=== PATIENT | female | born 1970 | race Caucasian/White ===

== ENCOUNTER 2016-09-18 14:11 | Emergency (ER) | payer OTHER | END 2016-09-18 14:30 | disposition home or self-care (01) | LOC: CED 14:11 | DX: R51 Headache (principal); F41.9 Anxiety disorder, unspecified; Z88.0 Allergy status to penicillin; Z88.2 Allergy status to sulfonamides; Z90.49 Acquired absence of other specified parts of digestive tract | CPT/HCPCS: 99283 ==

== ENCOUNTER → 2017-01-02 | Outpatient (CLI) | payer OTHER ==
--- NOTE | ~2017-01-02 | US136 ---
[facility] A Service of [facility] RADIOLOGY TEXT RESULTS PATIENT: DIANA HULL LOCATION: CNIV : 66 UNIT #: [id number] AGE: [address]: Cindi Calvert MD SEX: F ORDER DR: [id number] [address] [id number] O MR#: [id number] Acc #: [id number] NAME: DIANA HULL : 1970 SEX: F STUDY DATE/TIME: 01/02/2017 10:21 UNIT: CNIV ROOM: STUDY DESCRIPTION: US U/L Ext Art Study [facility] Bil Attending Physician: Cindi Calvert M.D. Referring Physician: Cindi Calvert M.D. Ordering Physician: Cindi Calvert M.D. Primary Care Physician: Cindi Calvert M.D. MEDICAL IMAGING REPORT This report is preliminary unless electronic signature is present EXAM Bilateral ankle-brachial indices INDICATIONS Bilateral claudication. TECHNIQUE Sequential pressures were obtained through both lower extremities and pulse volume recordings were generated. FINDINGS Ankle-brachial indices are normal bilaterally, measuring 1.07 at the dorsalis pedis artery on the right and 1.1 at the posterior tibial artery on the right. Ankle-brachial index of the posterior tibial artery on the left is 1.06 and at the dorsalis pedis artery on the left is 1.09. Patient's toe-brachial indices are also normal measuring 0.85 on the right and 0.87 on the left. IMPRESSION Normal bilateral ankle-brachial indices. Dictated by... Arlen Mitchell M.D. THIS IS AN ELECTRONICALLY VERIFIED REPORT Arlen Mitchell M.D. at 01/03/2017 5:15 PM AFF/psc TD: 01/02/2017 21:30 JOB #: [id number] MEDICAL IMAGING REPORT [facility] A Service [facility] RADIOLOGY TEXT RESULTS PATIENT: DIANA HULL LOCATION: CNIV : 66 UNIT #: [id number] AGE: [address]: Cindi Calvert MD SEX: F ORDER DR: Page 1 of 1 COPY
== END | disposition home or self-care (01) ==
LOC: CNIV 10:15
DX: I73.9 Peripheral vascular disease, unspecified (principal)
CPT/HCPCS: 93922